=== PATIENT | male | born 1995 | race Caucasian/White ===

== ENCOUNTER 2021-05-24 15:51 | Emergency (ER) | payer OTHER, SELFPAY ==
[2021-05-24 16:01] VITALS: BP 137/70; PULSE 85; RESP 18; TEMP 36.7; O2SAT 96; BMI 33.5
[2021-05-24 17:10] LABS: Add Manual Diff / Slide Review NO; Basophils Absolute Auto 0 /uL (0-100); Basophils Percent Auto 0.3 % (0-2); Eosinophils Absolute Auto 100 /uL (0-450); Eosinophils Percent Auto 0.9 % (2-4); Hematocrit 46.8 % (41-53); Hemoglobin 16.4 g/dL (13.5-17.5); Lymphocytes Absolute Auto 1300 /uL (1100-4500); Lymphocytes Percent Auto 15.4 % (25-40); Mean Corpuscular Hemoglobin 31.6 PG (26-34); Mean Corpuscular Volume 90.2 fL (80-100); Monocytes Absolute Auto 600 /uL (0-900); Monocytes Percent Auto 7.5 % (3-14); Neutrophils Absolute Auto 6300 /uL (1500-7000); Neutrophils Percent Auto 75.9 % (50-75); Platelet Count 204 X10^3/uL (150-400); Red Blood Cell Count 5.19 X10^6/uL (4.5-5.9); Red Cell Distribution Width 12.7 % (11.6-14.8); White Blood Cell Count 8.3 X10^3/uL (4.5-11.0)
--- NOTE | 2021-05-24 17:13 | ED.ABDPAIN ---
HPI - Abdominal Pain <DASHAWN Pena - Last Filed: 05/24/21 18:52> General Chief Complaint: Abdominal Pain Stated Complaint: ABD PAIN FEELS LIKE FIRE FEELS WEAK Time Seen by Provider: 05/24/21 16:22 Source: patient Mode of arrival: Ambulatory History of Present Illness HPI narrative: 26-year-old male without significant medical history presents to the emergency department complaining of left upper abdominal pain for the last 2 months, he states that it has been worse since Tuesday. Patient states that he has been to 3 different locations and had his abdominal pain worked up all without evidence of a problem. Patient has been afebrile, denies any nausea, vomiting, diarrhea, changes to his stool. He states that his pain comes and goes but is primarily in the left upper quadrant. He denies any flank pain, back pain, chest pain, shortness of breath. He states that he was at the walk-in clinic at the [facility] and they prescribed him Lexapro, he states he has taken this for the last 4 days. Related Data Home Medications Medication Instructions Recorded Confirmed montelukast 10 mg tablet 10 mg PO QDAY #0 10/02/12 (Singulair) Previous Rx's Medication Instructions Recorded hydroxyzine HCl 10 mg tablet 10 mg PO TID PRN #20 tab 05/24/21 omeprazole magnesium 20 mg 20 mg PO DAILY 30 Days #30 tab 05/24/21 tablet,delayed release ondansetron 4 mg disintegrating 4 mg PO DAILY PRN 5 Days tab 05/24/21 tablet Allergies Allergy/AdvReac Type Severity Reaction Status Date / Time No Known Drug Allergies Allergy Verified 05/24/21 16:08 Review of Systems <DASHAWN Pena - Last Filed: 05/24/21 18:52> Review of Systems Narrative: General: denies fever, chills Head/Neck: denies headache, neck pain Eyes: denies visual changes, eye pain Cardio: denies chest pain, palpitations Respiratory: denies shortness of breath, cough GI: Endorses left abdominal wall pain, mild nausea, denies any vomiting, or diarrhea, denies any blood in his stool endorses regular bowel movements : denies dysuria, hematuria MSK: denies joint pain, muscle weakness Skin: denies rash, itching Neuro: denies numbness, tingling Patient History <DASHAWN Pena - Last Filed: 05/24/21 18:52> Social History Smoking Status: Current some day smoker Smoking Status: Current some day smoker tobacco type: vaping alcohol intake frequency: a few times a week Substance Use Type: does not use Exam <DASHAWN Pena - Last Filed: 05/24/21 18:52> Narrative Exam Narrative: Independently reviewed vitals signs and nursing notes. General: cooperative, comfortable, in no acute distress, well developed and well groomed Head: atraumatic, symmetrical facial expressions Neck: supple, atraumatic, without lymphadenopathy. Eyes: pupils equal round and reactive, EOMI, conjunctiva normal Nose: nares patent, no rhinorrhea Mouth/Throat: uvula midline, moist mucus membranes Cardiovascular: regular rate and rhythm, no peripheral edema, warm extremities Respiratory: normal effort, able to speak in complete sentences, no audible wheezing, stridor, or rales. No retractions or tachypnea. GI: abdomen soft, nontender to palpation x4 quadrants, nondistended, no masses, no exquisite tenderness with exam, without guarding or rebound. No CVA tenderness bilaterally MSK: moves all extremities, ambulatory w/steady gait, neurovascularly intact, no weakness Skin: brisk capillary refill, no rash, no erythema Neuro: normal speech and cognition, A&O x3, normal tone Psych: mental status is grossly normal, congruent mood, normal affect, pleasant and cooperative Initial Vital Signs Initial Vital Signs: Vital Signs Temperature 98.0 F 05/24/21 16:01 Pulse Rate 85 05/24/21 16:01 Respiratory Rate 18 05/24/21 16:01 Blood Pressure 137/70 05/24/21 16:01 Pulse Oximetry 96 05/24/21 16:01 <Javier Tobar DO - Last Filed: 05/25/21 09:26> Initial Vital Signs Initial Vital Signs: Vital Signs Temperature 98.0 F 05/24/21 16:01 Pulse Rate 85 05/24/21 16:01 Respiratory Rate 18 05/24/21 16:01 Blood Pressure 137/70 05/24/21 16:01 Pulse Oximetry 96 05/24/21 16:01 Course <DASHAWN Pena - Last Filed: 05/24/21 18:52> Orders Ordered: Discontinued Medications Lorazepam (Lorazepam 0.5 Mg Tablet) 1 mg PO NOW ONE Stop: 05/24/21 17:15 Last Admin: 05/24/21 17:25 Dose: 1 mg Documented by: KEV Pantoprazole Sodium (Pantoprazole 40 Mg Vial) 40 mg IV NOW ONE Stop: 05/24/21 17:15 Last Admin: 05/24/21 17:24 Dose: 40 mg Documented by: KEV Vital Signs Vital signs: Vital Signs - 8 hr 05/24/21 16:01 05/24/21 18:20 Temperature 98.0 F Pulse Rate 85 71 Respiratory Rate 18 14 Blood Pressure 137/70 123/70 Pulse Oximetry 96 96 <Javier Tobar DO - Last Filed: 05/25/21 09:26> Orders Ordered: Discontinued Medications Lorazepam (Lorazepam 0.5 Mg Tablet) 1 mg PO NOW ONE Stop: 05/24/21 17:15 Last Admin: 05/24/21 17:25 Dose: 1 mg Documented by: KEV Pantoprazole Sodium (Pantoprazole 40 Mg Vial) 40 mg IV NOW ONE Stop: 05/24/21 17:15 Last Admin: 05/24/21 17:24 Dose: 40 mg Documented by: KEV Vital Signs Vital signs: Vital Signs - 8 hr 05/24/21 16:01 05/24/21 18:20 Temperature 98.0 F Pulse Rate 85 71 Respiratory Rate 18 14 Blood Pressure 137/70 123/70 Pulse Oximetry 96 96 MDM - Abdominal Pain <DASHAWN Pena - Last Filed: 05/24/21 18:52> Lab Data Result diagrams: 05/24/21 16:58 05/24/21 16:58 Labs: Lab Results 05/24/21 05/24/21 Range/Units 16:58 16:58 WBC 8.3 (4.5-11.0) X10^3/uL RBC 5.19 (4.5-5.9) X10^6/uL Hgb 16.4 (13.5-17.5) g/dL Hct 46.8 (41-53) % MCV 90.2 (80-100) fL MCH 31.6 (26-34) PG MCHC 35.0 (30-36) % RDW 12.7 (11.6-14.8) % Plt Count 204 (150-400) X10^3/uL Neut % (Auto) 75.9 H (50-75) % Lymph % (Auto) 15.4 L (25-40) % [place] % (Auto) 7.5 (3-14) % Eos % (Auto) 0.9 L (2-4) % Baso % (Auto) 0.3 (0-2) % Neut # (Auto) 6300 (3175-7726) /uL Lymph # (Auto) 1300 (6497-5184) /uL [place] # (Auto) 600 (0-900) /uL Eos # (Auto) 100 (0-450) /uL Baso # (Auto) 0 (0-100) /uL Sodium 142 (137-145) mmol/L Potassium 4.2 (3.4-5.1) mmol/L Chloride 102 (98-107) mmol/L Carbon Dioxide 33 H (22-32) mmol/L BUN 13 (9-20) mg/dL Creatinine 0.88 (0.66-1.25) mg/dL Estimated GFR > 60.0 (>60) mL/min BUN/Creatinine Ratio 14.8 (6-22) Glucose 103 H (70-100) mg/dL Calcium 9.5 (8.4-10.2) mg/dL Total Bilirubin 1.0 (0.2-1.3) mg/dL AST 26 (17-59) IU/L ALT 24 (<50) IU/L Alkaline Phosphatase 72 (38-126) U/L Total Protein 8.7 H (6.3-8.2) g/dL Albumin 4.9 (3.5-5.0) g/dL Globulin 3.8 (1.7-4.1) g/dL Albumin/Globulin Ratio 1.3 (1.0-2.8) Lipase 45 (23-300) U/L Point of care testing: Urine Dip Bedside Urine Glucose Negative Bedside Urine Bilirubin - Negative Bedside Urine Ketone - Negative Urine Specific [place] 1.030 Bedside Urine Occult Blood - Negative Bedside Urine pH 6.0 Bedside Urine Protein - Negative Bedside Urine Urobilinogen - Negative Bedside Urine Nitrite - Negative Bedside Urine Leukocytes - Negative Esterase MDM Narrative Medical decision making narrative: This is a 26-year-old male who presents to the emergency department complaining of left abdominal wall pain that has been worked up 4 times in the last month. He states that he has gone to a different walk-in clinic or emergency department each time hoping to find an answer to it. He is awaiting a primary care appointment June 19. He has not had any vomiting, fever, changes to his regular bowel movements, any relation of pain with food, any blood in his urine or stool. Patient did not have any tenderness on the right upper quadrant or epigastrium, he has left abdominal wall pain which he states is superficial. No deep pain to palpation, no splenomegaly. No CVA tenderness bilaterally. No tenderness to left lower quadrant. Patient's lab work is unremarkable, no leukocytosis, no elevation in LFTs, lipase 45. T bili 1.0. Patient states that after discussing his findings that he was told that this was anxiety. He states that he started taking Lexapro 4 days ago for this problem. He denies any history of heartburn but has not tried anything for epigastric pain yet. Today he was given a prescription for omeprazole, encouraged him to use this daily for the next few days, prescription of Zofran as needed for nausea. He was also given hydroxyzine for symptoms of anxiety attack. Encourage close follow-up with PCP as soon as he gets there. Monitor his symptoms, if he develops a fever, worsening pain, changes to his stool, he is encouraged to return to the emergency department for another evaluation. No peritoneal signs on abdominal exam. Patient remains p.o. tolerant. Serial abdominal exam without increase in abdominal pain. Given history and exam, low suspicion for acute abdominal process, such as acute cholecystitis, pancreatitis, perforated viscus, atypical appendicitis, colitis, diverticulitis or torsion. Extensive conversation about ER return precautions and need for close follow-up. Patient is appropriate and amenable to discharge home. Vital signs are stable on repeat examination is unremarkable. Patient has been informed of results. Patient has been given strict return to ER precautions for any new or worsening symptoms. Patient understands to follow up closely with outpatient providers as instructed. Patient understands plan and agrees to discharge home. All questions and concerns answered at this time. <Javier Tobar DO - Last Filed: 05/25/21 09:26> Lab Data Labs: Lab Results 05/24/21 05/24/21 Range/Units 16:58 16:58 WBC 8.3 (4.5-11.0) X10^3/uL RBC 5.19 (4.5-5.9) X10^6/uL Hgb 16.4 (13.5-17.5) g/dL Hct 46.8 (41-53) % MCV 90.2 (80-100) fL MCH 31.6 (26-34) PG MCHC 35.0 (30-36) % RDW 12.7 (11.6-14.8) % Plt Count 204 (150-400) X10^3/uL Neut % (Auto) 75.9 H (50-75) % Lymph % (Auto) 15.4 L (25-40) % [place] % (Auto) 7.5 (3-14) % Eos % (Auto) 0.9 L (2-4) % Baso % (Auto) 0.3 (0-2) % Neut # (Auto) 6300 (1922-8975) /uL Lymph # (Auto) 1300 (6969-5242) /uL [place] # (Auto) 600 (0-900) /uL Eos # (Auto) 100 (0-450) /uL Baso # (Auto) 0 (0-100) /uL Sodium 142 (137-145) mmol/L Potassium 4.2 (3.4-5.1) mmol/L Chloride 102 (98-107) mmol/L Carbon Dioxide 33 H (22-32) mmol/L BUN 13 (9-20) mg/dL Creatinine 0.88 (0.66-1.25) mg/dL Estimated GFR > 60.0 (>60) mL/min BUN/Creatinine Ratio 14.8 (6-22) Glucose 103 H (70-100) mg/dL Calcium 9.5 (8.4-10.2) mg/dL Total Bilirubin 1.0 (0.2-1.3) mg/dL AST 26 (17-59) IU/L ALT 24 (<50) IU/L Alkaline Phosphatase 72 (38-126) U/L Total Protein 8.7 H (6.3-8.2) g/dL Albumin 4.9 (3.5-5.0) g/dL Globulin 3.8 (1.7-4.1) g/dL Albumin/Globulin Ratio 1.3 (1.0-2.8) Lipase 45 (23-300) U/L Point of care testing: Urine Dip Bedside Urine Glucose Negative Bedside Urine Bilirubin - Negative Bedside Urine Ketone - Negative Urine Specific [place] 1.030 Bedside Urine Occult Blood - Negative Bedside Urine pH 6.0 Bedside Urine Protein - Negative Bedside Urine Urobilinogen - Negative Bedside Urine Nitrite - Negative Bedside Urine Leukocytes - Negative Esterase Discharge Plan Departure Patient Disposition: Home Clinical Impression: Anxiety, Abdominal wall pain in left upper quadrant Activity Restrictions/Additional Instructions: *You have been diagnosed with abdominal wall pain. Your lab work is unremarkable for any problems with your organs. This is most likely GERD with some component of anxiety/panic attack. Please continue taking your Lexapro as prescribed. Please take omeprazole daily in the morning on an empty stomach at least an hour away from your Lexapro. Please take hydroxyzine as needed for panic like symptoms or worsening pain. Please avoid ibuprofen in case this is GERD. Please take Tylenol as needed for your pain. Follow-up with your primary care provider in June. Please return for any worsening of your symptoms or if you start having blood in your stool, high fevers, or any other concerns. *What to do: *Please continue to take your regular medications as directed. [ x] New medication prescriptions sent to your pharmacy: [ [facility]] [ ] New medication written as a paper prescription [ ] No new medications given *Please follow up with your primary care provider in 2-3 days, call for an appointment. Let them know you were seen in the Emergency Department and that we asked that you be seen for follow-up. We will electronically transmit a record of today's note if your PCP is in our system *If you do not have a primary care provider please contact [phone] to establish care with one of the [facility] primary care providers. *Return to Emergency Department if you should have any new, worsening or concerning symptoms, such as [fever greater than 101F, chills, worsening pain, persistent vomiting or other bothersome symptoms] Prescriptions: New hydroxyzine HCl 10 mg tablet 10 mg PO TID PRN (Reason: anxiety) Qty: 20 0RF omeprazole magnesium 20 mg tablet,delayed release (DR/EC) 20 mg PO DAILY 30 Days Qty: 30 0RF ondansetron 4 mg tablet,disintegrating 4 mg PO DAILY PRN (Reason: nausea and vomiting) 5 Days 0RF No Action montelukast [Singulair] 10 MG tablet 10 mg PO QDAY Qty: 0 0RF <Javier Tobar DO - Last Filed: 05/25/21 09:26> Cosign ED Attending Coselviaature Attestation: I was immediately available in the department for consultation. This documentation has been reviewed and I agree with assessment and plan. Supervised by Javier Tobar DO
[2021-05-24 17:23] LABS: Alanine Aminotransferase 24 IU/L (<50); Albumin 4.9 g/dL (3.5-5.0); Albumin Globulin Ratio 1.3 (1.0-2.8); Alkaline Phosphatase 72 U/L (38-126); Aspartate Aminotransferase 26 IU/L (17-59); BUN Creatinine Ratio 14.8 (6-22); Blood Urea Nitrogen 13 mg/dL (9-20); Calcium 9.5 mg/dL (8.4-10.2); Carbon Dioxide 33 mmol/L (22-32); Chloride 102 mmol/L (98-107); Estimated Glomerular Filt Rate > 60.0 mL/min (>60); Globulin 3.8 g/dL (1.7-4.1); Glucose 103 mg/dL (70-100); HEMOLYSIS < 15 (0-50); Lipase 45 U/L (23-300); Potassium 4.2 mmol/L (3.4-5.1); Sodium 142 mmol/L (137-145); Total Protein 8.7 g/dL (6.3-8.2)
[2021-05-24] MEDS: PANTOPRAZOLE 40 MG VIAL IV (17:24)
[2021-05-24] MEDS: LORazepam 0.5 MG TABLET 1 MG PO (17:25)
[2021-05-24 18:20] VITALS: BP 123/70; PULSE 71; RESP 14; O2SAT 96
== END 2021-05-24 18:22 | disposition home or self-care (01) ==
PROVIDERS: Emergency Medicine; Emergency Provider Nurse Practitioner Critical Care Medicine
DX: R10.12 Left upper quadrant pain (principal); F41.9 Anxiety disorder, unspecified
CPT/HCPCS: 36415; 80053; 81003; 83690; 85025; 93005; 93010; 96374; 99284; C9113